=== PATIENT | male | born 1955 | race Caucasian/White ===

== ENCOUNTER 2019-11-15 08:51 | Emergency (ER) | payer MEDICARE ==
[2019-11-15] MEDS ORDERED: Ketorolac 30 MG/ML SDV IM ONE (09:19)
--- NOTE | 2019-11-15 09:26 | EDM.PDOC ---
ED HPI GENERAL MEDICAL PROBLEM - General Chief Complaint: General Stated Complaint: BAD TOOTHACHE Time Seen by Provider: 11/15/19 09:08 Source of Information: Reports: Patient, RN Notes Reviewed History Limitations: Reports: No Limitations - History of Present Illness INITIAL COMMENTS - FREE TEXT/NARRATIVE: 63 years old gentleman who presents to the ER with complaints of dental pain x 6 days. He states he broke his teeth with a water hose. He reports history of dental problems and is following up with a dentist for treatment. He came up to the area from [place] for Fishing 6 days ago and will be back on the road in one day. Pain is worst last night and it is migrating into his jaw. He rated pain 8/ 10 and describes it as shooting. He has tried Tylenol and Ibuprofen with minimal relief. He denies any fever/chill/SOB/CP or palpitations. Left Tooth/Teeth Pain Score (Numeric/FACES): 6 - Related Data Allergies Allergy/AdvReac Type Severity Reaction Status Date / Time No Known Allergies Allergy Verified 11/15/19 09:04 Home Meds: Home Meds . [No Known Home Meds] 11/15/19 [History] Social & Family History - Tobacco Use Smoking Status *Q: Never Smoker - Recreational Drug Use Recreational Drug Use: No ED ROS GENERAL - Review of Systems Review Of Systems: Comprehensive ROS is negative, except as noted in HPI. ED EXAM, GENERAL - Physical Exam Exam: See Below Exam Limited By: No Limitations General Appearance: Moderate Distress Eye Exam: Bilateral Eye: PERRL Ears: Normal External Exam, Normal Canal, Hearing Grossly Normal, Normal TMs Nose: Normal Inspection, Normal Mucosa, No Blood Throat/Mouth: Normal Inspection, Normal Lips, Normal Oropharynx, Normal Voice, No Airway Compromise, Other (No teeth on upper side of his mouth. Caries noted on the few teeth on the lower region and one broken incisor. Patient reports pain with light palpation) Head: Atraumatic, Normocephalic Neck: Normal Inspection, Supple, Non-Tender, Full Range of Motion Respiratory/Chest: No Respiratory Distress, Lungs Clear, Normal Breath Sounds, No Accessory Muscle Use, Chest Non-Tender Cardiovascular: Normal Peripheral Pulses GI/Abdominal: Normal Bowel Sounds, Soft, Non-Tender, No Organomegaly, No Distention, No Abnormal Bruit, No Mass Neurological: Alert, Oriented, Normal Cognition, Normal Gait Psychiatric: Normal Affect, Normal Mood Skin Exam: Warm Lymphatic: No Adenopathy Course - Vital Signs Last Recorded V/S: Last Vital Signs Temp 97.8 F 11/15/19 09:00 Pulse 93 11/15/19 09:00 Resp 16 11/15/19 09:00 BP 151/99 H 11/15/19 09:32 Pulse Ox 98 11/15/19 09:00 - Orders/Labs/Meds Meds: Medications Discontinued Medications Generic Name Dose Route Start Last Admin Trade Name Adalberto PRN Reason Stop Dose Admin Ketorolac Tromethamine 30 mg 11/15/19 09:19 11/15/19 09:26 Toradol IM 11/15/19 09:20 30 mg ONETIME ONE Administration - Re-Assessments/Exams Free Text/Narrative Re-Assessment/Exam: 11/15/19 09:30. 63 year old gentleman who presents to the Er with dental pain. Exam findings reviewed with patient. Toradol 30 mg IM administered. RX for Penicillin VK 500 mg BID sent with patient. Medications side effects reviewed. Follow up with dentist as arranged. Also follow up with primary for BP recheck. 11/15/19 11:45 Departure - Departure Time of Disposition: 09:40 Disposition: Home, Self-Care 01 Condition: Fair Clinical Impression: Dental infection, Elevated blood pressure reading - Discharge Information Instructions: Preventive Dental Care, Adult Referrals: PCP,Not In Area [Primary Care Provider] - Forms: ED Department Discharge Sepsis Event Note (ED) - Evaluation Sepsis Screening Result: No Definite Risk - Focused Exam Vital Signs: Vital Signs Temp Pulse Resp BP Pulse Ox 11/15/19 09:32 151/99 H 11/15/19 09:00 97.8 F 93 16 169/82 H 98
== END 2019-11-15 09:50 | disposition home or self-care (01) ==
LOC: DL.ED 08:51
DX: K04.7 Periapical abscess without sinus (principal); R03.0 Elevated blood-pressure reading, without diagnosis of hypertension; K02.9 Dental caries, unspecified
CPT/HCPCS: 96372; 99282; J1885; 99283